=== PATIENT | female | born 1985 | race Caucasian/White ===

== ENCOUNTER 2023-06-04 16:26 | Emergency (ER) | payer SELFPAY ==
[~2023-06-04] VITALS: Ht 167.6 cm; Wt 112.0 kg
[2023-06-04] MEDS ORDERED: ONDANSETRON 4MG ODT PO STA (16:54)
[2023-06-04] MEDS ORDERED: LORAZEPAM 2MG/ML INJ IV ONE (18:15)
[2023-06-04] MEDS ORDERED: SODIUM CHLORIDE 0.9% 1,000 ML IV ONE (18:30)
[2023-06-04] MEDS ORDERED: LEVETIRACETAM 500MG PREMIX 100 ML IV ONE ×3 (18:30→22:30)
[2023-06-04] MEDS ORDERED: MIDAZOLAM HCL 2 MG/2 ML VIAL IV ONE (18:30)
[2023-06-04] MEDS: MIDAZOLAM HCL 2 MG/2 ML VIAL IV ONE ×3 (18:40→19:24)
[2023-06-04 18:53] LABS: CLARITY URINE CLEAR (CLEAR); COLOR URINE YELLOW (YELLOW); GLUCOSE URINE NEGATIVE (NEGATIVE); KETONES URINE 1+ (NEGATIVE); LEUKOCYTE ESTERASE URINE NEGATIVE (NEGATIVE); NITRITE URINE NEGATIVE (NEGATIVE); OCCULT BLOOD URINE 1+ (NEGATIVE); PH URINE 5.5 (4.5-8.0); PROTEIN URINE 3+ (NEGATIVE); SPECIFIC GRAVITY URINE 1.021 (1.005-1.030); UROBILINOGEN URINE 0.2 E.U./dL (0.2-1.0)
[2023-06-04 19:03] LABS: BASOPHILS % 0.8 % (0.0-2.0); DIFFERENTIAL COMMENT 0; HEMATOCRIT. 42.5 % (36.0-48.0); HEMOGLOBIN. 13.8 g/dL (12.0-16.0); LYMPHOCYTES % 16.1 % (20.0-50.0); MEAN CORPUSCULAR HEMOGLOBIN 32.5 pg (28.0-32.0); MEAN CORPUSCULAR HGB CONC 32.4 g/dL (31.0-37.0); MEAN CORPUSCULAR VOLUME 100.2 fL (81.0-99.0); MEAN PLATELET VOLUME 7.9 fl (7.4-10.4); MONOCYTES % 2.5 % (2.0-8.0); NEUTROPHILS % 80.6 % (40.0-76.0); PLATELET 346 x1000/uL (130-400); RED BLOOD CELL COUNT 4.24 mill/uL (4.2-5.4); RED CELL DISTRIBUTION WIDTH 13.4 % (11.6-14.6); WHITE BLOOD COUNT 15.6 x1000/uL (4.5-11.0)
[2023-06-04 19:22] LABS: ACETAMINOPHEN < 2 ug/mL (10-30); ALANINE AMINOTRANSFERASE 27 IU/L (10-49); ALBUMIN 4.1 g/dL (3.2-4.8); ASPARTATE AMINOTRANSFERASE 21 IU/L (<34); BILIRUBIN TOTAL 0.3 mg/dL (0.1-1.0); CALCIUM 8.7 mg/dL (8.7-10.4); CARBON DIOXIDE 10 mEq/L (21-32); CHLORIDE 107 mEq/L (98-107); CREATININE 0.7 mg/dL (0.6-1.0); GLUCOSE 195 mg/dL (70-105); POTASSIUM 3.6 mEq/L (3.5-5.1); PROTEIN TOTAL 7.5 g/dL (6.0-8.3); SODIUM 140 mEq/L (136-145); THYROID STIMULATING HORMONE 1.89 uIU/mL (0.55-4.78); UREA NITROGEN BLOOD 9 mg/dL (9-23)
[2023-06-04 19:22] LABS: *AMPHETAMINES SCREEN URINE PRESUMPTIVE POSITIVE (NEGATIVE); *BARBITURATES SCREEN URINE NEGATIVE (NEGATIVE); *BENZODIAZEPINES SCREEN URINE NEGATIVE (NEGATIVE); *COCAINE SCREEN URINE NEGATIVE (NEGATIVE); CANNABINOID URINE SCREEN PRESUMPTIVE POSITIVE (NEGATIVE); ECSTASY MDMA SCREEN URINE CONF.TEST INDICATED (NEGATIVE); METHADONE URINE SCREEN Neg (NEGATIVE); OPIATES URINE SCREEN NEGATIVE (NEGATIVE); PHENCYCLIDINE URINE SCREEN NEGATIVE (NEGATIVE)
[2023-06-04 19:23] LABS: AMMONIA 28 uMol/L (<32)
[2023-06-04 19:24] LABS: ETHANOL BLOOD < 10 mg/dL (<10)
[2023-06-04] MEDS ORDERED: PHENYTOIN SODIUM 100MG/2ML VIAL IV ONE (19:30)
[2023-06-04 19:48] LABS: BACTERIA URINE TRACE
[2023-06-04 19:49] LABS: SQUAMOUS EPITHELIAL CELL URINE FEW /lpf (RARE/1+); WBC URINE 0-2 /hpf (0-2)
[2023-06-04] MEDS ORDERED: ROCURONIUM BROMIDE 10MG/ML VIAL 5ML IV ONE (20:15)
[2023-06-04] MEDS ORDERED: PROPOFOL 10MG/ML 100ML 100 ML IV ONE (20:15)
[2023-06-04] MEDS ORDERED: ETOMIDATE 2MG/ML 10ML VIAL IV ONE (20:15)
[2023-06-04 20:38] VITALS: PULSE 99; RESP 16
[2023-06-04] MEDS ORDERED: NICARDIPINE 40MG/200ML PREMIX 200 ML IV PRN (21:15)
[2023-06-04] MEDS ORDERED: MANNITOL 12.5G (25%) VIAL 50ML IV ONE (21:30)
[2023-06-04] MEDS ORDERED: PHENOBARBITAL IV ONE (22:30)
[2023-06-04] MEDS ORDERED: SODIUM CHLORIDE 0.9% IV ONE (22:30)
[2023-06-04] MEDS ORDERED: PANTOPRAZOLE SODIUM 40 MG/VIAL IV SCH (22:45)
[2023-06-04] MEDS ORDERED: IPRATROPIUM/ALBUTEROL 0.5-3(2.5)MG/3ML NEB HHN PRN (22:45)
[2023-06-04] MEDS ORDERED: ONDANSETRON HCL 4MG/2ML INJ IV PRN (22:45)
[2023-06-04 22:53] VITALS: PULSE 125; RESP 32
[2023-06-04 22:53] LABS: BG BASE EXCESS -8.7 mmol/L (-2.0-2.0); BG CARBOXYHEMOGLOBIN 0.3 % (0.5-1.5); BG DEOXYHEMOGLOBIN 0.5 % (0.0-5.0); BG FRACTION INSPIRED OXYGEN 100; BG HCO3 ACT 15.2 mmol/L (22.0-26.0); BG METHEMOGLOBIN 0.4 % (0.0-1.5); BG OXYGEN SATURATION 99.5 % (92.0-98.5); BG OXYHEMOGLOBIN 98.8 % (94.0-97.0); BG PCO2 27.4 mmHg (35.0-45.0); BG PH 7.361 (7.350-7.450); BG PO2 489.1 mmHg (75.0-100.0); BG SAMPLE SITE RIGHT RADIAL; BG TOTAL HEMOGLOBIN 13.5 g/dL (12.0-18.0); BG TOTAL RESPIRATORY RATE 33 b/min; BG VENT MODE VENT - AC
[2023-06-04] MEDS ORDERED: DEXTROSE 50% WATER 50ML SYRINGE IV PRN (23:00)
[2023-06-04] MEDS ORDERED: NICARDIPINE 50 MG in SODIUM CHLORIDE 0.9% 230 ML IV PRN (23:15)
[2023-06-04] MEDS ORDERED: MIDAZOLAM HCL 100 MG in DEXT 5% WATER 80 ML IV ONE (23:15)
[2023-06-04] MEDS ORDERED: MIDAZOLAM 100MG/100ML PMX 100 ML IV ONE (23:30)
[2023-06-04 23:52] LABS: INR 0.9; PROTHROMBIN TIME 10.2 sec (9.6-11.0)
[2023-06-04 23:53] LABS: AMMONIA < 10 uMol/L (<32)
[2023-06-05] MEDS ORDERED: FENTANYL 2500MCG/250ML PMX 250 ML IV ONE
[2023-06-05] MEDS ORDERED: MIDAZOLAM 100MG/100ML PMX 100 ML IV PRN
[2023-06-05 00:12] LABS: FOLIC ACID (FOLATE) SERUM > 20.00 ng/mL (>5.38); VITAMIN B12 SERUM 387 pg/mL (211-911)
[2023-06-05] MEDS ORDERED: FENTANYL CITRATE 2,500 MCG in SODIUM CHLORIDE 0.9% 200 ML IV PRN (00:15)
[2023-06-05] MEDS ORDERED: PROPOFOL 10MG/ML 100ML 100 ML IV ONE ×2 (00:15→02:45)
[2023-06-05 00:39] VITALS: O2SAT 100
[2023-06-05] MEDS ORDERED: NICARDIPINE 50 MG in SODIUM CHLORIDE 0.9% 230 ML IV PRN (00:45)
[2023-06-05 00:50] VITALS: PULSE 119; RESP 24
[2023-06-05] MEDS ORDERED: NICARDIPINE 40 MG/200 ML PREMIX 200 ML IV PRN (01:00)
[2023-06-05 02:35] VITALS: BP 134/76; PULSE 110; RESP 20; TEMP 98.9
[2023-06-05] MEDS ORDERED: LEVETIRACETAM 500MG PREMIX 100 ML IV SCH (09:00)
== END 2023-06-05 03:05 | disposition short-term general hospital (02) ==
LOC: ER 16:26 → EDBEDREQTM 20:12 → EDBEDREQ 20:12 → EDBEDREQSVC 20:12 → ER 06-05 03:05 → CANBEDREQ 06-05 16:43
DX: I62.9 Nontraumatic intracranial hemorrhage, unspecified (principal); J96.00 Acute respiratory failure, unspecified whether with hypoxia or hypercapnia; E11.9 Type 2 diabetes mellitus without complications; R41.82 Altered mental status, unspecified; F19.10 Other psychoactive substance abuse, uncomplicated; Z20.822 Contact with and (suspected) exposure to COVID-19
CPT/HCPCS: 80053; 80305; 81003; 80307; 80329; 80320; 82140; 82607; 82746; 82962; 83036; 83690; 84443; 85025; 85610; 87040; 36415; 84145; 71045; 70450; 82805; 82375; 31500 ×2; 93005; 99291; 82542; 36600; 86850; 86900; 86901; 87426; Q0162; J1953; J2060; J2150; J2250 ×2; C9113; J2560; J1165; J2704 ×2; J3490; J7050; J7030; Z7610 ×5; 94002; J3010; J7060; G0480